=== PATIENT | female | born 1985 | race Caucasian/White ===

== ENCOUNTER 2017-09-01 09:05 | Emergency (ER) | payer SELFPAY ==
[~2017-09-01] VITALS: Ht 177.8 cm; Wt 66.7 kg
[2017-09-01 10:08] VITALS: BP 132/85
--- NOTE | 2017-09-01 10:14 | PHYS DOC ---
Adult General Chief Complaint Chief Complaint: BLOOD IN URINE [facility] Patient is a 31 year old female presents the ED complaining of dysuria 2 days. Patient has a history of urinary tract infections. Describes as burning. Rates as 8 out of 10. States same symptoms with previous episodes of urinary tract infections. Denies STD exposure, vaginal discharge/vaginal bleeding, abdominal pain, nausea/vomiting, back pain, fever, chest pain or shortness of breath. Review of Systems Review of Systems Constitutional: Denies fever or chills [] Eyes: Denies change in visual acuity, redness, or eye pain [] HENT: Denies nasal congestion or sore throat [] Respiratory: Denies cough or shortness of breath [] Cardiovascular: No additional information not addressed in HPI [] GI: Denies abdominal pain, nausea, vomiting, bloody stools or diarrhea [] : Complains of dysuria. Denies hematuria [] Musculoskeletal: Denies back pain or joint pain [] Integument: Denies rash or skin lesions [] Neurologic: Denies headache, focal weakness or sensory changes [] Endocrine: Denies polyuria or polydipsia [] All other systems were reviewed and found to be within normal limits, except as documented in this note. Allergies Allergies Allergies Coded Allergies Type Severity Reaction Last Updated Verified ciprofloxacin Allergy Unknown 09/01/17 Yes phenazopyridine Allergy Unknown 09/01/17 Yes sulfamethoxazole Allergy Unknown 09/01/17 Yes trimethoprim Allergy Unknown 09/01/17 Yes Physical Exam Physical Exam Constitutional: Well developed, well nourished, no acute distress, non-toxic appearance. [] Cardiovascular:Heart rate regular rhythm, no murmur [] Lungs & Thorax: Bilateral breath sounds clear to auscultation [] Abdomen: Bowel sounds normal, soft, no tenderness, no masses, no pulsatile masses. [] Skin: Warm, dry, no erythema, no rash. [] Back: No tenderness, no CVA tenderness. [] Extremities: No tenderness, no cyanosis, no clubbing, ROM intact, no edema. [] Neurologic: Alert and oriented X 3, normal motor function, normal sensory function, no focal deficits noted. [] Psychologic: Affect normal, judgement normal, mood normal. [] Current Patient Data Vital Signs Vital Signs Date Time Temp Pulse Resp B/P (MAP) Pulse Ox O2 Delivery O2 Flow Rate FiO2 09/01/17 10:08 98.0 76 12 100 Room Air 98.0 Lab Values Laboratory Tests Test 09/01/17 10:05 09/01/17 10:16 Urine Collection Type Void Urine Color Yellow Urine Clarity Clear Urine pH 6.0 Urine Specific [place] >=1.030 Urine Protein Negative mg/dL (NEG-TRACE) Urine Glucose (UA) Negative mg/dL (NEG) Urine Ketones (Stick) Negative mg/dL (NEG) Urine Blood Negative (NEG) Urine Nitrite Negative (NEG) Urine Bilirubin Negative (NEG) Urine Urobilinogen Dipstick 1.0 mg/dL (0.2 mg/dL) Urine Leukocyte Esterase Small (NEG) Urine RBC 0 /HPF (0-2) Urine WBC 5-10 /HPF (0-4) Urine Squamous Epithelial Cells Mod /LPF Urine Bacteria 0 /HPF (0-FEW) Urine Mucus Marked /LPF POC Urine HCG, Qualitative Hcg negative (Negative) EKG EKG [] Radiology/Procedures Radiology/Procedures [] Course & Med Decision Making Course & Med Decision Making Pertinent Labs and Imaging studies reviewed. (See chart for details) []Patient denies any STD exposure. Patient states that she is having same symptoms she has had with previous urinary tract infections. Small leukocyte esterase seen on urinalysis. Will treat with Macrobid at patient's request. Discussed follow-up with urology this week. Provided contact information/ education. Discussed reasons to return to the ED. Patient understands and agrees with plan. Family at bedside. Dragon Disclaimer Dragon Disclaimer This electronic medical record was generated, in whole or in part, using a voice recognition dictation system. Departure Departure Impression: Primary Impression: Urinary tract infection Disposition: 01 HOME, SELF-CARE Condition: STABLE Referrals: NO PCP (PCP) SHRUTHI PANTOJA MD Patient Instructions: Dysuria, Urinary Tract Infection Scripts Nitrofurantoin Monohyd/M-Cryst (MACROBID 100 MG CAPSULE) 100 Mg Capsule 1 CAP PO BID, #[id number] CAP Prov: KELSI MILLER 09/01/17 KELSI MILLER Sep 01, 2017 10:14
[2017-09-01 10:30] LABS: BILIRUBIN,URINE NEGATIVE (NEG); GLUCOSE,URINE NEGATIVE (NEG); NITRITE,URINE NEGATIVE (NEG); PROTEIN,URINE NEGATIVE (NEG-TRACE)
[2017-09-01 10:49] LABS: BACTERIA,URINE 0 /HPF (0-FEW); RBC,URINE 0 /HPF (0-2); SQUAMOUS EPITHELIAL CELL,UR MOD /LPF
[2017-09-01] MEDS ORDERED: NITR100C62 PO (10:54)
== END 2017-09-01 11:04 | disposition home or self-care (01) ==
LOC: ER 09:05
DX: N39.0 Urinary tract infection, site not specified (principal); Z88.1 Allergy status to other antibiotic agents; Z88.2 Allergy status to sulfonamides; Z88.8 Allergy status to other drugs, medicaments and biological substances
CPT/HCPCS: 81001; 81025; 87086; 99284